=== PATIENT | male | born 1980 ===

== ENCOUNTER 2016-12-10 18:25 | Emergency (ER) | payer MEDICAID ==
[2016-12-10 18:35] VITALS: BP 152/91; PULSE 68; RESP 19; TEMP 98.7; O2SAT 100
[2016-12-10] MEDS ORDERED: Sodium Chloride 0.9% 1,000 ML IV STA (19:27)
[2016-12-10 20:10] LABS: VENOUS BLOOD GAS BASE EXCESS 4.2 mmol/L (0.0-2.0); VENOUS BLOOD GAS PCO2 50 mmHg (40-60); VENOUS BLOOD GAS PO2 23 mm/Hg (30-55); VENOUS BLOOD PH 7.39 (7.32-7.43)
[2016-12-10 20:15] LABS: BASO # 0.1 K/uL (0.0-0.2); BASO % 0.8 % (0.0-2.0); EOS # 0.2 K/uL (0.0-0.7); EOS % 2.5 % (0.0-4.0); HEMOGLOBIN 14.9 g/dL (12.0-18.0); LYMPH # 3.4 K/uL (1.0-4.3); LYMPH % 40.5 % (20.0-40.0); MEAN CELL VOLUME 87.5 fl (80.0-94.0); MEAN CORPUSCULAR HEMOGLOBIN 29.2 pg (27.0-31.0); MEAN CORPUSCULAR HGB CONC 33.4 g/dL (33.0-37.0); MEAN PLATELET VOLUME 9.4 fl (7.2-11.7); MONO # 0.6 K/uL (0.0-0.8); MONO % 6.9 % (0.0-10.0); NEUT # 4.1 K/uL (1.8-7.0); NEUT % 49.3 % (50.0-75.0); RBC 5.08 Mil/uL (4.40-5.90); WHITE BLOOD COUNT 8.4 K/uL (4.8-10.8)
[2016-12-10 20:16] LABS: URINE BILIRUBIN NEGATIVE (NEGATIVE); URINE BLOOD NEGATIVE (NEGATIVE); URINE CLARITY CLEAR (Clear); URINE COLOR YELLOW (YELLOW); URINE GLUCOSE (UA) >=500 mg/dL (Normal); URINE LEUKOCYTE ESTERASE NEG Leu/uL (Negative); URINE NITRATE NEGATIVE (NEGATIVE); URINE PROTEIN NEGATIVE (NEGATIVE); URINE UROBILINOGEN 0.2-1.0 mg/dL (0.2-1.0)
[2016-12-10 20:18] LABS: BLOOD UREA NITROGEN 17 mg/dl (9-20); GFR AFRICAN-AMERICAN > 60
[2016-12-10 20:19] LABS: ALB/GLOB RATIO 1.5 (1.0-2.1); ALBUMIN 4.8 g/dL (3.5-5.0); ALT/SGPT 70 U/L (21-72); AST/SGOT 36 U/L (17-59); CALCIUM 9.7 mg/dL (8.4-10.2); GFR NON-AFRICAN AMERICAN > 60
--- NOTE | 2016-12-10 20:23 | ED PDOC ---
HPI: General Adult Time Seen by Provider: 12/10/16 19:21 Chief Complaint (Nursing): Abnormal Labs Chief Complaint (Provider): Abnormal Labs History Per: Patient History/Exam Limitations: no limitations Onset/Duration Of Symptoms: Days (past few days) Current Symptoms Are (Timing): Still Present Additional Complaint(s): 36 y/o male presents to the emergency department with a complaint of high blood sugar, polyuria, and polydipsia for the past few days after alcohol binge. Reports he was diagnosed with diabetes 6 months ago and only took medications x1 month but never followed up with primary care doctor. States next appointment is scheduled for next month with [facility]. Denies abdominal pain, fever, chills, chest pain, or shortness of breath. Past Medical History Reviewed: Historical Data, Nursing Documentation, Vital Signs Vital Signs: Last Vital Signs Temp 98.7 F 12/10/16 18:31 Pulse 68 12/10/16 18:31 Resp 19 12/10/16 18:31 BP 152/91 H 12/10/16 18:31 Pulse Ox 100 12/10/16 20:40 - Medical History PMH: Kidney Stones, Chronic Kidney Disease Denies: Sexually Transmitted Disease (Denies Hx as of 08/2014) - Family History Family History: States: Unknown Family Hx - Immunization History Hx Tetanus Toxoid Vaccination: No Hx Influenza Vaccination: No Hx Pneumococcal Vaccination: No - Home Medications Home Medications: Ambulatory Orders Medication Instructions Recorded Blood Sugar Diagnostic [Glucose 1 each MC BID #60 strip 02/16/16 Test Strip] Blood-Glucose Meter, Drum-Type 1 each MC BID #1 kit 02/16/16 [Accu-Chek] GlipiZIDE [Glucotrol] 5 mg PO ACB #30 tab 02/16/16 Lancets [Accu-Chek] 1 each MC BID #1 pkg 02/16/16 metFORMIN [glucOPHAGE] 500 mg PO BID #60 tab 02/16/16 metFORMIN [glucOPHAGE] 500 mg PO BID #60 tab 12/10/16 - Allergies Allergies/Adverse Reactions: Allergies Allergy/AdvReac Type Severity Reaction Status Date / Time No Known Allergies Allergy Verified 02/14/16 16:19 Review of Systems ROS Statement: Except As Marked, All Systems Reviewed And Found Negative Constitutional: Positive for: Other (Polydipsia and hyperglycemia). Negative for: Fever, Chills Cardiovascular: Negative for: Chest Pain Respiratory: Negative for: Shortness of Breath Gastrointestinal: Negative for: Abdominal Pain Genitourinary Male: Positive for: Frequency Physical Exam - Reviewed Nursing Documentation Reviewed: Yes Vital Signs Reviewed: Yes - Physical Exam Appears: Positive for: Non-toxic, No Acute Distress Head Exam: Positive for: ATRAUMATIC, NORMAL INSPECTION, NORMOCEPHALIC Skin: Positive for: Normal Color, Warm, Dry Neck: Positive for: Normal, Supple Cardiovascular/Chest: Positive for: Regular Rate, Rhythm. Negative for: Murmur , Bradycardia Respiratory: Positive for: Normal Breath Sounds. Negative for: Accessory Muscle Use, Respiratory Distress Gastrointestinal/Abdominal: Positive for: Normal Exam, Soft. Negative for: Tenderness Extremity: Positive for: Normal ROM. Negative for: Pedal Edema Neurologic/Psych: Positive for: Alert, Oriented - Laboratory Results Result Diagrams: 12/10/16 19:47 12/10/16 19:47 - ECG O2 Sat by Pulse Oximetry: 100 (RA) Pulse Ox Interpretation: Normal Medical Decision Making Medical Decision Making: Time: 19:27 Initial impression: Hyperglycemia in setting of noncompliance with medication Initial plan: --COMP Metabolic Panel --Sodium Chloride 1,000 ml IV 1,000 mls/hr --Rope Walker CONT --Reevaluation 2130 PT not in DKA. Encouraged f/u w/ PMD. Return precautions given. Scribe Attestation: Documented by Vanessa Mcgraw, acting as a scribe for Lori Burnett MD. Provider Scribe Attestation: All medical record entries made by the Scribe were at my direction and personally dictated by me. I have reviewed the chart and agree that the record accurately reflects my personal performance of the history, physical exam, medical decision making, and the department course for this patient. I have also personally directed, reviewed, and agree with the discharge instructions and disposition. Disposition - Clinical Impression Clinical Impression: Hyperglycemia - Disposition Referrals: [facility] [employer] [facility] [Outside] [facility] [Outside] Disposition: Routine/Home Disposition Time: 21:30 Condition: STABLE Prescriptions: metFORMIN [glucOPHAGE] 500 mg PO BID #60 tab Instructions: Diabetic Hyperglycemia (ED) Print Language: TOGOLESE
== END 2016-12-10 22:04 | disposition home or self-care (01) ==
LOC: H.ER 18:25
DX: E11.65 Type 2 diabetes mellitus with hyperglycemia (principal); Z79.84 Long term (current) use of oral hypoglycemic drugs; Z91.14 Patient's other noncompliance with medication regimen